=== PATIENT | male | born 1980 | race Caucasian/White ===

== ENCOUNTER 2024-08-30 15:28 | Emergency (ER) | payer MEDICARE, OTHER ==
[~2024-08-30] VITALS: Ht 162.6 cm; Wt 81.6 kg
[2024-08-30 15:46] VITALS: BP 115/74; TEMP 98.6; O2SAT 97
== END 2024-08-30 19:09 | disposition left against medical advice (07) ==
LOC: ER 15:34
DX: R21 Rash and other nonspecific skin eruption (principal); Z53.21 Procedure and treatment not carried out due to patient leaving prior to being seen by health care provider